=== PATIENT | male | born 1955 | race Caucasian/White ===

== ENCOUNTER → 2018-07-15 | Outpatient (CLI) | payer OTHER ==
[~2018-07-15] MED LIST: ALBUTEROL2.5 MG/0.5 INH; BUMETANIDE2 M1 PO; CARVEDILOL6.25 MG PO; CLONAZEPAM 0.50.5 M1 PO; COUMADIN 5 MG TA5 M1 PO; FENOFIBRATE160 MG PO; FLOMAX0.4 MG PO; GLUCOPHAGE XR500 MG PO; HYDROXYZINE HCL25 M1 PO; JANUVIA50 MG; JARDIANCE10 MG PO; KEFLEX500 MG PO; LANTUS SOL100 UNIT/1 SQ; LEVAQUIN 500 M500 M2 PO; LEVOTHYROXIN0.112 M1 PO; LIPITOR 20 MG T20 M1 PO; LOSARTAN POTAS100 MG PO; LYRICA300 MG PO; MODAFINIL200 MG PO; NORCO 10-325 T1 EACH PO; NORTRIPTYLINE H50 M3 PO; NOVOLOG100 UNIT/1 SUBQ; PANTOPRAZOLE SO40 M1 PO; PROTONIX40 M1 PO; SYMBICORT80 MCG/4.1 INH; TRAMADOL 50 MG50 MG PO; VENTOLIN HFA 1818 GM INH
== END ==
LOC: HYPER 07-11 15:08
DX: T87.89 Other complications of amputation stump (principal); S81.812A Laceration without foreign body, left lower leg, initial encounter; L84 Corns and callosities; E11.69 Type 2 diabetes mellitus with other specified complication; M86.8X7 Other osteomyelitis, ankle and foot; E11.65 Type 2 diabetes mellitus with hyperglycemia; E11.51 Type 2 diabetes mellitus with diabetic peripheral angiopathy without gangrene; E11.42 Type 2 diabetes mellitus with diabetic polyneuropathy; E66.01 Morbid (severe) obesity due to excess calories; E78.5 Hyperlipidemia, unspecified; E07.89 Other specified disorders of thyroid; G47.30 Sleep apnea, unspecified; M19.90 Unspecified osteoarthritis, unspecified site; J84.10 Pulmonary fibrosis, unspecified; J44.9 Chronic obstructive pulmonary disease, unspecified; K21.9 Gastro-esophageal reflux disease without esophagitis; F41.9 Anxiety disorder, unspecified; F17.200 Nicotine dependence, unspecified, uncomplicated; Z90.49 Acquired absence of other specified parts of digestive tract; Z89.432 Acquired absence of left foot; X58.XXXA Exposure to other specified factors, initial encounter; Y93.89 Activity, other specified; Y92.89 Other specified places as the place of occurrence of the external cause; Y99.8 Other external cause status; Y83.5 Amputation of limb(s) as the cause of abnormal reaction of the patient, or of later complication, without mention of misadventure at the time of the procedure

== ENCOUNTER → 2018-08-02 | Outpatient (CLI) | payer OTHER | LOC: HYPER 08:05 | DX: T87.89 Other complications of amputation stump (principal); S80.812D Abrasion, left lower leg, subsequent encounter; L84 Corns and callosities; E11.65 Type 2 diabetes mellitus with hyperglycemia; E11.51 Type 2 diabetes mellitus with diabetic peripheral angiopathy without gangrene; E11.42 Type 2 diabetes mellitus with diabetic polyneuropathy; E11.69 Type 2 diabetes mellitus with other specified complication; M86.8X7 Other osteomyelitis, ankle and foot; E66.01 Morbid (severe) obesity due to excess calories; E78.5 Hyperlipidemia, unspecified; E07.89 Other specified disorders of thyroid; G47.30 Sleep apnea, unspecified; J84.10 Pulmonary fibrosis, unspecified; J44.9 Chronic obstructive pulmonary disease, unspecified; K21.9 Gastro-esophageal reflux disease without esophagitis; M19.90 Unspecified osteoarthritis, unspecified site; F41.9 Anxiety disorder, unspecified; F17.200 Nicotine dependence, unspecified, uncomplicated; Z90.49 Acquired absence of other specified parts of digestive tract; Z89.421 Acquired absence of other right toe(s); X58.XXXD Exposure to other specified factors, subsequent encounter; Y83.5 Amputation of limb(s) as the cause of abnormal reaction of the patient, or of later complication, without mention of misadventure at the time of the procedure ==

== ENCOUNTER 2018-09-10 17:28 | Emergency (ER) | payer OTHER ==
[~2018-09-10] VITALS: Ht 175.3 cm; Wt 108.9 kg
[2018-09-10 19:48] LABS: INR 3.6; PROTIME 37.5 Seconds (9.3-11.4)
[2018-09-10 20:45] VITALS: BP 98/63
[2018-09-10] MEDS ORDERED: HUMALOG100 UNIT/1 SUBQ (20:55)
[2018-09-10] MEDS ORDERED: SINGULAIR 10 MG10 M1 PO (20:59)
[2018-09-10] MEDS ORDERED: VIAGRA100 MG PO (21:01)
[2018-09-10] MEDS ORDERED: ZOLOFT50 MG PO (21:01)
[2018-09-10] MEDS ORDERED: ZANAFLEX4 MG PO (21:02)
[2018-09-10] MEDS ORDERED: FISH OIL 1,001000 M2 PO (21:03)
[2018-09-10] MEDS ORDERED: ERYTHROMYCIN E3.5 G3 OPHTHALMIC (21:05)
[2018-09-10] MEDS ORDERED: ZOFRAN ODT4 MG PO (21:05)
== END 2018-09-10 20:50 | disposition home or self-care (01) ==
LOC: ER 17:28
PROVIDERS: Emergency Medicine
DX: L89.891 Pressure ulcer of other site, stage 1 (principal); Z89.512 Acquired absence of left leg below knee; E11.40 Type 2 diabetes mellitus with diabetic neuropathy, unspecified; K21.9 Gastro-esophageal reflux disease without esophagitis; F41.9 Anxiety disorder, unspecified; F32.9 Major depressive disorder, single episode, unspecified; J44.9 Chronic obstructive pulmonary disease, unspecified; E03.9 Hypothyroidism, unspecified; E78.5 Hyperlipidemia, unspecified; Z88.1 Allergy status to other antibiotic agents; Z88.8 Allergy status to other drugs, medicaments and biological substances

== ENCOUNTER → 2018-10-16 | Outpatient (CLI) | payer OTHER ==
[~2018-10-16] MED LIST changes: +ERYTHROMYCIN E3.5 G3 OPHTHALMIC; +FISH OIL 1,001000 M2 PO; +HUMALOG100 UNIT/1 SUBQ; +SINGULAIR 10 MG10 M1 PO; +VIAGRA100 MG PO; +ZANAFLEX4 MG PO; +ZOFRAN ODT4 MG PO; +ZOLOFT50 MG PO
== END ==
LOC: HYPER 09-20 07:03
DX: T87.89 Other complications of amputation stump (principal); S90.811A Abrasion, right foot, initial encounter; S91.301A Unspecified open wound, right foot, initial encounter; E11.40 Type 2 diabetes mellitus with diabetic neuropathy, unspecified; E11.51 Type 2 diabetes mellitus with diabetic peripheral angiopathy without gangrene; E11.69 Type 2 diabetes mellitus with other specified complication; M86.8X7 Other osteomyelitis, ankle and foot; L84 Corns and callosities; G47.30 Sleep apnea, unspecified; E66.01 Morbid (severe) obesity due to excess calories; E78.5 Hyperlipidemia, unspecified; M19.90 Unspecified osteoarthritis, unspecified site; J44.9 Chronic obstructive pulmonary disease, unspecified; F17.200 Nicotine dependence, unspecified, uncomplicated; Z89.512 Acquired absence of left leg below knee; X58.XXXA Exposure to other specified factors, initial encounter; Y93.89 Activity, other specified; Y92.89 Other specified places as the place of occurrence of the external cause; Y99.8 Other external cause status; Y83.5 Amputation of limb(s) as the cause of abnormal reaction of the patient, or of later complication, without mention of misadventure at the time of the procedure

== ENCOUNTER 2018-10-25 12:29 | Emergency (ER) | payer OTHER ==
[~2018-10-25] VITALS: Ht 175.3 cm; Wt 108.9 kg
[2018-10-25 14:45] LABS: ABSOLUTE NEUTROPHILS 6.2 thou/uL (1.4-8.2); HEMATOCRIT 42.9 % (42.0-52.0); HEMOGLOBIN 14.7 gm/dL (14.0-18.0); MCH 29.1 pg (26.0-34.0); MCHC 34.3 g/dL (28.0-37.0); MCV 84.8 fL (80.0-100.0); MONOCYTES 10.3 % (1.0-8.0); PLATELET COUNT 260 thou/uL (150-400); POLYS 59.7 % (36.0-66.0); RBC 5.06 mil/uL (4.50-6.00); RDW 13.8 % (10.5-14.5); WBC 10.4 thou/uL (4.0-11.0)
[2018-10-25 14:50] LABS: CALCIUM 10.3 mg/dL (8.5-10.1); CREATININE 1.3 mg/dL (0.7-1.3)
[2018-10-25] MEDS ORDERED: BACTRIM DS TAB1 EACH PO (15:40)
[2018-10-25 16:28] VITALS: BP 134/86
== END 2018-10-25 16:20 | disposition home or self-care (01) ==
LOC: ER 12:29
PROVIDERS: Emergency Medicine
DX: T81.49XA Infection following a procedure, other surgical site, initial encounter (principal); T87.89 Other complications of amputation stump; E11.40 Type 2 diabetes mellitus with diabetic neuropathy, unspecified; K21.9 Gastro-esophageal reflux disease without esophagitis; G47.30 Sleep apnea, unspecified; F32.9 Major depressive disorder, single episode, unspecified; F41.9 Anxiety disorder, unspecified; J44.9 Chronic obstructive pulmonary disease, unspecified; E03.9 Hypothyroidism, unspecified; M86.9 Osteomyelitis, unspecified; E78.5 Hyperlipidemia, unspecified; Z90.49 Acquired absence of other specified parts of digestive tract; Z86.711 Personal history of pulmonary embolism; Z85.828 Personal history of other malignant neoplasm of skin; Z79.4 Long term (current) use of insulin; Z88.1 Allergy status to other antibiotic agents; Z88.8 Allergy status to other drugs, medicaments and biological substances

== ENCOUNTER → 2018-11-06 | Outpatient (CLI) | payer OTHER ==
[~2018-11-06] MED LIST changes: +BACTRIM DS TAB1 EACH PO
== END ==
LOC: HYPER 06:55
DX: T87.89 Other complications of amputation stump (principal); S80.812D Abrasion, left lower leg, subsequent encounter; S90.811D Abrasion, right foot, subsequent encounter; L84 Corns and callosities; E11.69 Type 2 diabetes mellitus with other specified complication; M86.8X7 Other osteomyelitis, ankle and foot; E11.42 Type 2 diabetes mellitus with diabetic polyneuropathy; E11.65 Type 2 diabetes mellitus with hyperglycemia; E11.51 Type 2 diabetes mellitus with diabetic peripheral angiopathy without gangrene; G47.30 Sleep apnea, unspecified; E07.89 Other specified disorders of thyroid; E78.5 Hyperlipidemia, unspecified; E66.01 Morbid (severe) obesity due to excess calories; J44.9 Chronic obstructive pulmonary disease, unspecified; J84.10 Pulmonary fibrosis, unspecified; K21.9 Gastro-esophageal reflux disease without esophagitis; M17.11 Unilateral primary osteoarthritis, right knee; F17.200 Nicotine dependence, unspecified, uncomplicated; F41.9 Anxiety disorder, unspecified; Z68.35 Body mass index [BMI] 35.0-35.9, adult; Z90.49 Acquired absence of other specified parts of digestive tract; Z89.421 Acquired absence of other right toe(s); X58.XXXD Exposure to other specified factors, subsequent encounter; Y83.5 Amputation of limb(s) as the cause of abnormal reaction of the patient, or of later complication, without mention of misadventure at the time of the procedure